=== PATIENT | female | born 1935 | race Caucasian/White ===

== ENCOUNTER 2019-11-19 09:04 | Emergency (ER) | payer OTHER ==
[~2019-11-19] VITALS: Ht 162.6 cm; Wt 58.1 kg
[2019-11-19 09:09] VITALS: Ht 162.6 cm; Wt 58.1 kg
[2019-11-19 10:15] VITALS: BP 115/80
== END 2019-11-19 10:15 | disposition home or self-care (01) ==
LOC: ED 09:04
DX: S50.312A Abrasion of left elbow, initial encounter (principal); S00.212A Abrasion of left eyelid and periocular area, initial encounter; I10 Essential (primary) hypertension; E78.00 Pure hypercholesterolemia, unspecified; Z90.49 Acquired absence of other specified parts of digestive tract; Z88.5 Allergy status to narcotic agent; W55.01XA Bitten by cat, initial encounter; Y93.89 Activity, other specified; Y92.89 Other specified places as the place of occurrence of the external cause; Y99.8 Other external cause status
CPT/HCPCS: 90715